=== PATIENT | female | born 1950 | race Hispanic/Latino ===

== ENCOUNTER 2018-03-31 16:21 | Emergency (ER) | payer OTHER ==
[2018-03-31 16:56] LABS: BASOPHILS % (AUTO) 1.2 % (0.0-5.0); EOSINOPHILS % (AUTO) 1.6 % (0.0-8.0); HEMATOCRIT 38.8 % (36-48); LYMPHOCYTES % (AUTO) 19.5 % (21.0-51.0); MEAN CORPUSCULAR HEMOGLOBIN 30.4 pg (27.0-33.0); MEAN CORPUSCULAR HGB CONC 34.1 g/dL (32.0-36.0); MEAN CORPUSCULAR VOLUME 89.1 fL (79-99); MONOCYTES % (AUTO) 7.4 % (3.0-13.0); NEUTROPHILS % (AUTO) 70.3 % (40.0-77.0); PLATELET COUNT (AUTO) 139 K/uL (130-400); RED BLOOD CELL COUNT(AUTO) 4.36 MIL/uL (4.00-5.50); RED CELL DISTRIBUTION WIDTH 13.6 % (11.0-15.5); WHITE BLOOD COUNT (AUTO) 7.1 K/uL (4.8-10.8)
[2018-03-31] MEDS ORDERED: HYOSCYAMINE SULFATE 0.125 MG TAB.SUBL SL ONE (17:05)
[2018-03-31] MEDS ORDERED: ONDANSETRON HCL 4 MG/2 ML VIAL ONE (17:05)
[2018-03-31 17:08] LABS: CREATININE 0.6 mg/dL (0.5-1.5); POTASSIUM 3.8 mmol/L (3.5-5.1)
[2018-03-31 17:21] LABS: ALBUMIN 3.5 g/dL (3.5-5.0); BILIRUBIN,TOTAL 0.3 mg/dL (0.2-1.0); CREATINE KINASE MB 1.2 ng/mL (0.5-3.6); TOTAL PROTEIN, SERUM 7.6 g/dL (6.0-8.3)
[2018-03-31 17:22] LABS: APPEARANCE,URINE Cloudy (CLEAR); BILIRUBIN,URINE Negative (NEGATIVE); COLOR,URINE Yellow (YELLOW); GLUCOSE, URINE (UA) Negative (NEGATIVE); KETONES,URINE Negative (NEGATIVE); LEUKOCYTE ESTERASE ,URINE Negative (NEGATIVE); NITRATE,URINE Negative (NEGATIVE); OCCULT BLOOD,URINE Negative (NEGATIVE); PROTEIN,URINE Negative (NEGATIVE)
[2018-03-31 17:54] LABS: CALCIUM OXALATE CRYSTALS,UR Moderate /LPF (None Seen); MUCUS,URINE Few LPF (None Seen); SQUAMOUS EPITHELIAL CELL,UR 30-50 /HPF (0-2)
[2018-03-31 17:56] LABS: BACTERIA,URINE Few /HPF (None Seen); RBC,URINE 0-1 /HPF (0-1); WBC,URINE 0-1 /HPF (0-1)
[2018-03-31] MEDS ORDERED: SODIUM CHLORIDE 0.9% 1000ML 1,000 ML IV ONE (18:33)
[2018-03-31] MEDS ORDERED: KETOROLAC TROMETHAMINE 15MG/ML ONE (18:33)
[2018-03-31] MEDS ORDERED: FAMOTIDINE 20MG TAB 20 MG TAB ONE (18:33)
== END 2018-03-31 21:14 | disposition home or self-care (01) ==
LOC: EDH 16:21
DX: R11.2 Nausea with vomiting, unspecified (principal); T36.8X5A Adverse effect of other systemic antibiotics, initial encounter; Z88.5 Allergy status to narcotic agent; Y92.89 Other specified places as the place of occurrence of the external cause
CPT/HCPCS: 36415; 74176; 80053; 81001; 82150; 82550; 82553; 83690; 84484; 85025; 93005; 96361; 96374; 96375; 99285; J1885; J2405; J7030

== ENCOUNTER 2019-08-12 10:44 | Emergency (ER) | payer OTHER ==
[2019-08-12] MEDS ORDERED: ORPHENADRINE CITRATE 30 MG/ML ML ONE (12:40)
[2019-08-12] MEDS ORDERED: KETOROLAC TROMETHAMINE 15MG/ML ONE (12:41)
[2019-08-12] MEDS ORDERED: ONDANSETRON HCL 4 MG/2 ML VIAL ONE (14:16)
[2019-08-12] MEDS ORDERED: DEXAMETHASONE SOD PHOSPHATE 10MG/ML 1ML VIAL ONE (14:16)
[2019-08-12] MEDS ORDERED: MORPHINE SULFATE 4 MG/1ML SYG ONE (14:17)
== END 2019-08-12 16:13 | disposition home or self-care (01) ==
LOC: EDH 10:44
DX: M54.12 Radiculopathy, cervical region (principal); Z90.710 Acquired absence of both cervix and uterus; Z88.6 Allergy status to analgesic agent; R51 Headache
CPT/HCPCS: 72040; 96374; 96375; 99284; J1100; J1885; J2270; J2360; J2405

== ENCOUNTER 2025-03-06 12:13 | Emergency (ER) | payer OTHER ==
[~2025-03-06] VITALS: Ht 162.6 cm; Wt 85.7 kg
[2025-03-06] MEDS: acetaMINOPHEN 500 MG TABLET PO STA (12:38)
--- NOTE | 2025-03-06 13:11 | ERN ---
ED Note History of Present Illness Stated Complaint: RIGHT ARM PAIN S/P FALL 3 DAYS AGO Chief Complaint: Arm Swelling/Redness Time Seen by MD: 12:19 Time Seen by Midlevel: 12:20 Dictation: 75-YEAR-OLD FEMALE COMING IN WITH COMPLAINTS OF RIGHT ARM PAIN. PATIENT STATES SHE SLIPPED ON WATER AND FELL ON MONDAY. DENIES ANY HEAD INJURY. DENIES ANY LOC. COMPLAINING OF RIGHT SHOULDER PAIN. Allergies: Coded Allergies: codeine (Unverified Allergy, Severe, HIVES, 05/27/15) Home Meds No Active Prescriptions or Reported Meds Past Medical History Past Medical History: No Pertinent History Surgical History: Hysterectomy, Cholecystectomy Review of System Dictation CONSTITUTIONAL: NEGATIVE FOR FEVER,CHILLS, AND WEIGHT LOSS EYES: NEGATIVE FOR INJURY, PAIN,REDNESS, AND DISCHARGE ENT: NEGATIVE FOR INJURY,PAIN OR SWELLING CARDIOVASCULAR: NEGATIVE FOR CHEST PAIN, PALPITATIONS, AND EDEMA RESPIRATORY: NEGATIVE FOR SHORTNESS OF BREATH, COUGH, AND WHEEZING, ABDOMEN/GI: NEGATIVE FOR ABDOMINAL PAIN, NAUSEA, VOMITING, DIARRHEA, AND CONSTIPATION BACK: NEGATIVE FOR INJURY AND PAIN : NEGATIVE FOR INJURY, BLEEDING AND DISCHARGE MS/EXTREMITY: COMPLAINING OF RIGHT SHOULDER PAIN AFTER GROUND LEVEL FALL SKIN: NEGATIVE FOR RASH, AND DISCOLORATION NEURO: NEGATIVE FOR HEADACHE, WEAKNESS, NUMBNESS, TINGLING, AND SEIZURE PSYCH: NEGATIVE FOR SUICIDE IDEATION, HOMICIDAL IDEATION, AND HALLUCINATIONS Review of Systems: was completed Initial Vital Sign VS Vital Signs Date Time Temp Pulse Resp B/P (MAP) Pulse Ox O2 Delivery O2 Flow Rate FiO2 03/06/25 12:14 97.5 74 20 148/72 99 Room Air 0 03/06/25 12:22 21 Physical Exam Dictation GENERAL: AWAKE, ALERT, NAD HEAD/FACE: NORMOCEPHALIC, ATRAUMATIC EYES: PERRL, EOMI, VISION AT BASELINE ENT: ORAL CAVITY CLEAR, TMS CLEAR, NO SIGNS OF INFECTION NECK: TRACHEA MIDLINE, SUPPLE, NO NUCHAL RIGIDITY CARDIOVASCULAR: RRR, NORMAL S1/S2, NO MRGS, NO JVD RESPIRATORY: CTAB, NO RESPIRATORY DISTRESS, NO RALES OR WHEEZES ABDOMEN: SOFT, NON-TENDER, NON-DISTENDED, NORMAL BOWEL SOUNDS, NO GUARDING OR REBOUND. SKIN: WARM, DRY, NORMAL TURGOR, NO RASH MS/EXTREMITY: PULSES EQUAL, NO CYANOSIS, NEUROVASCULAR INTACT, FROM NEURO: COAX4, GCS 15, STRENGTH 5/5, CN 2-12 INTACT, NORMAL CEREBELLAR EXAM, NORMAL GAIT, PSYCH: NORMAL BEHAVIOR, MOOD, AND AFFECT NORMAL ED Course ED Course Orders Procedure Category Date Status Time Shoulder Comp 2+Vws Rt RAD 03/06/25 Resulted 12:18 Acetaminophen 500mg PHA 03/06/25 Complete Tab (Tylenol 500mg T 12:21 *Nursing CPOE 03/06/25 Transmitted Communication: 13:05 Current Medications Medications (Trade) Dose Ordered Sig/Mackenzie Route PRN Reason Start Time Stop Time Status Last Admin Dose Admin Acetaminophen (TYLenol 500MG TAB) 1,000 mg ONCE STAT PO 03/06/25 12:21 03/06/25 12:24 DC 03/06/25 12:38 Vital Signs Date Time Temp Pulse Resp B/P (MAP) Pulse Ox O2 Delivery O2 Flow Rate FiO2 03/06/25 13:18 97.5 74 20 144/70 99 Room Air* 0 21 03/06/25 12:22 97.5 74 20 148/72 99 Room Air* 0 21 03/06/25 12:14 97.5 74 20 148/72 99 Room Air 0 Medical Decision Making MDM MDM: 75-YEAR-OLD FEMALE COMING IN WITH COMPLAINTS OF RIGHT ARM PAIN. PATIENT STATES SHE SLIPPED ON WATER AND FELL ON MONDAY. DENIES ANY HEAD INJURY. DENIES ANY LOC. COMPLAINING OF RIGHT SHOULDER PAIN. X-RAY INTERPRETED BY ER MD, NO ACUTE FINDINGS. WE WILL APPLY A SLING BEFORE DISCHARGE. DISCUSSED WITH THE PATIENT SHE NEEDS TO TAKE TYLENOL OR MOTRIN [id number] FOR PAIN CONTROL AND FOLLOW UP WITH PCP IN 1-2 DAYS. PATIENT VERBALIZED UNDERSTANDING, ANSWERED ALL QUESTIONS. DIFFERENTIAL DIAGNOSIS: AC JOINT SEPARATION, HUMERAL HEAD FRACTURE, SHOULDER DISLOCATION RATIONALE: TESTS CONSIDERED AND ORDERED SECONDARY TO SHARED DECISION MAKING INCLUDE: PREVIOUS OUTSIDE RECORDS REVIEWED: OLD ER VISITS. RISK OF COMPLICATION AND/OR MORBIDITY OR MORTALITY OF PATIENT MANAGEMENT: NONE MEDICATIONS-PER MEDICATION RECONCILIATION NEED FOR HOSPITALIZATION: PATIENT DOES NOT MEET CRITERIA FOR HOSPITALIZATION. NEED FOR EMERGENCY MAJOR/MINOR SURGERY: NO THERE ARE NO SOCIAL CONCERNS WITH THIS PATIENT. PRESCRIPTION DRUG MANAGEMENT PRESCRIPTIONS WILL INCLUDE SYMPTOMATIC CARE PATIENT'S PRIOR EXTERNAL MEDICAL RECORDS FROM OTHER ER VISITS WERE REVIEWED BY ME INDICATED. PRIOR TESTING AND RESULTS FROM PREVIOUS VISITS WERE REVIEWED. PRIOR TESTS WERE TAKEN INTO ACCOUNT WITH MEDICAL DECISION MAKING AND RESOURCE UTILIZATION, INDEPENDENT HISTORIAN/HISTORIANS WERE USED TO OBTAIN COMPLETE MEDICAL HISTORY. I INDEPENDENTLY INTERPRETED THE TEST THAT WERE PERFORMED, RESULTS WERE REVIEWED BY ME AND CONSIDERED FINDINGS ON RADIOLOGY IF ORDERED. MEDICAL MANAGEMENT AND EXAMINATION INTERPRETATION DISCUSSIONS WERE HAD BY ME WITH OTHER QUALIFIED HEALTHCARE PROFESSIONALS INDICATED FOR THE PATIENT'S CARE. DX & DISP Disposition: Discharge Departure Impression: Primary Impression: Shoulder contusion Condition: Stable Scripts No Active Prescriptions or Reported Meds Additional Instructions: TAKE TYLENOL OR MOTRIN [id number] FOR PAIN CONTROL. RETURN TO THE [facility] IF YOU HAVE ANY WORSENING SYMPTOMS OTHERWISE FOLLOW UP WITH YOUR PRIMARY DOCTOR IN 1-2 DAYS. Referrals: MILAN MCNAMARA MD (PCP) Time of Disposition: 13:08 I have reviewed the case, and I agree with, Diagnosis and Plan DMITRY RAMÍREZ NP March 06, 2025 13:11 MUSA SARABIA DO March 07, 2025 10:30
[2025-03-06 13:18] VITALS: BP 144/70; PULSE 74; RESP 20; TEMP 97.5; O2SAT 99
--- NOTE | 2025-03-06 14:19 | HMCIMG ---
SHOULDER COMP 2+VWS RT HISTORY: Status post fall COMPARISON: None TECHNIQUE: 3 images of the right shoulder were obtained. FINDINGS: There is no acute displaced fracture or dislocation. Degenerative changes are seen. IMPRESSION: 1. Findings as described above.
== END 2025-03-06 13:19 | disposition home or self-care (01) ==
LOC: EDH 12:13
DX: S40.011A Contusion of right shoulder, initial encounter (principal); Z88.5 Allergy status to narcotic agent; Z90.49 Acquired absence of other specified parts of digestive tract; Z90.710 Acquired absence of both cervix and uterus; W01.0XXA Fall on same level from slipping, tripping and stumbling without subsequent striking against object, initial encounter; Y93.89 Activity, other specified; Y92.89 Other specified places as the place of occurrence of the external cause; Y99.8 Other external cause status
CPT/HCPCS: 73030; 99283